=== PATIENT | female | born 2000 | race Caucasian/White ===

== ENCOUNTER → 2020-07-29 13:35 | Outpatient (CLI) | payer BC, SELFPAY ==
--- NOTE | ~2020-07-29 | US_ITS ---
EXAMINATION: US venous doppler LE RT DATE: 07/29/2020 14:10 INDICATION: Right lower limb pain TECHNIQUE: Grande scale images without and with compression and Doppler images of the right lower extre mity veins were obtained. COMPARISON: None FINDINGS: The right common femoral vein, profunda femoral vein, femoral vein, popliteal vein, peronea l trunk, posterior tibial veins, and greater saphenous vein are patent. IMPRESSION: 1. Patent right lower extremity veins. No evidence of deep venous thrombosis. Reviewed, dictated and finalized at location A.
== END ==
PROVIDERS: PCP Nurse Practitioner Family; Visit Provider Nurse Practitioner Family
DX: M79.604 Pain in right leg (principal)
CPT/HCPCS: 93971

== ENCOUNTER → 2021-02-08 13:33 | Outpatient (CLI) | payer BC, SELFPAY ==
--- NOTE | ~2021-02-08 | XR_ITS ---
EXAMINATION: XR sacrum coccyx min 2V DATE: 02/08/2021 14:04 INDICATION: Coccygeal pain TECHNIQUE: AP, angled AP and lateral views of the sacrum and coccyx were obtained. COMPARISON: CT abdomen and pelvis dated 06/10/19 FINDINGS: Transitional S1 segment which is lumbarized on the right. Sacral arches are intact. No fracture or ev ident cortical erosions. Mild bilateral sacroiliac osteoarthritis. Bilateral hip joint spaces are nor mal. IMPRESSION: 1. Mild bilateral sacroiliac osteoarthritis. No acute osseous abnormality. Reviewed, dictated and finalized at location A.
== END ==
PROVIDERS: PCP Nurse Practitioner Family; Visit Provider Nurse Practitioner Family
DX: M47.818 Spondylosis without myelopathy or radiculopathy, sacral and sacrococcygeal region (principal)
CPT/HCPCS: 72220

== ENCOUNTER 2023-06-20 01:30 | Day surgery (SDC) | payer BC, SELFPAY ==
[2023-06-13 14:29] VITALS: BMI 35.4
--- NOTE | 2023-06-13 14:33 | PC.NURSE ---
Report to the Outpatient Waiting Room, entrance under the green pavilion located off [facility], at time 0600 on date 06/20/23. Planned Procedure Time: 0730. Time changes happen often and if your time is changed the preop area will call you the afternoon before. - You and your visitor will be asked to self-screen and do not enter if you have any COVID symptoms. - A mask is optional within the hospital at this time. Patients may have clear liquids (water, carbonated beverages, clear teas, apple juice) until 3 hours prior to surgery (0430) with a maximum of 20 ounces. - No food from midnight until time of surgery Take the following medications with a SIP of water the morning of surgery: NONE DO NOT STOP ANY OF YOUR OTHER PRESCRIPTION MEDICATIONS PRIOR TO SURGERY ?EXCEPT THE FOLLOWING Medications to discontinue per physician: N/A Date to take last dose: N/A Please no make-up, nail maldivian, hairspray, perfume, deodorant, or body powder the day of surgery. No jewelry (including any body piercings) or valuables the day of surgery, leave them at home. Please take a shower or bath the night before, or the morning of, surgery with an antibacterial soap. Wear comfortable, loose fitting clothing. - Jewelry must be removed prior to entering the operating room. Rings and piercings that are not removed may be cut off. - The hospital will not accept responsibility for valuables. - Please leave all valuables, including medications, at home the day of surgery. If you are going home after surgery, a licensed operator and truck driver must drive you home. - NO public transportation without another adult if you receive anesthesia. - We recommend that an adult stay with you for 24 hours following discharge. - We also recommend that you do not drive, make important decision, drink alcoholic beverages, or take any drugs that were not prescribed by your health care provider for at least 24 hours after your discharge time. Follow any additional instructions given to you from your surgeon. If you or anyone in your household have experienced Covid symptoms in the past week, please notify your surgeon or the nurse liaison at the phone number below for possible testing. Telephone instructions given to PT - ROBBIE [facility]ITAL and asked if any additional questions and then verbalized understanding. Patient advised to call surgeon office or pre surgery nurse liaison [phone] if any additional questions.
[2023-06-20] VITALS (9 sets, daily range): BP systolic 95–118; BP diastolic 56–72; PULSE 71–102; RESP 16–18; TEMP 36.1–36.2; O2SAT 99–100
[2023-06-20] MEDS: ACETAMINOPHEN 500 MG TABLET 1000 MG PO (06:29)
[2023-06-20] MEDS: LACTATED RINGERS 1,000 ML 30 ML IV CONT ×2 (06:30→08:21)
[2023-06-20] MEDS: KETOROLAC 15 MG/ML VIAL (*BKC) IV PUSH (06:32)
--- NOTE | 2023-06-20 06:38 | WPDANESEPPF ---
Anes - Initial Pre Proc Eval Procedure: Operation Date: 06/20/23 07:30 Proposed Procedures p Laparoscopic Right Ovarian Cystectomy - Rick Stone MD Date/Time: 06/20/23 06:38 Surgeon: Rick Stone MD Pre Op Diagnosis: right ovary cyst Patient Data Age: 22 Gender: F Height: 1.75 m Weight: 108.9 kg Allergies Allergy/AdvReac Type Severity Reaction Status Date / Time No Known Allergies Allergy Unverified 06/13/23 14:28 Home Medications Medication Instructions Recorded Confirmed Type sumatriptan succinate 50 mg tablet 50 mg PO ONCE PRN Migraine Headache 06/13/23 06/20/23 History Patient hx anesthesia problems: none and other (motion sickness) Family hx anesthesia problems: none Results Review: All pre-operative results and documents have been reviewed as part of the pre-operative evaluation. [facility] Social History Social History Smoking status: Never smoker Alcohol intake: current Alcohol use details: 2/MONTH Substance use: never Substance use type: does not use Living arrangements: with friend(s) Additional living arrangements comments: BOYFRIEND Spiritual care concerns: No Anes - Eval Final PreProcedure Day of Procedure 06/20/23 06:38 Patient weight: obese Heart: regular rate and rhythm Lungs: clear to auscultation Airway: Mallampati scale class II Neurological: alert and oriented Last oral intake: >/= 8 hours ASA classification: II Emergent: no Anesthetic plan: proceed Anesthesia type and monitoring: general ETT and standard monitoring Results Review: All pre-operative results and documents have been reviewed as part of the pre-operative evaluation. Informed Consent: The patient's anesthetic plan and its attendant risks and benefits were discussed with the patient/family/POA. Questions were solicited and answers provided to the satisfaction of the patient/family/POA.
[2023-06-20] MEDS: SCOPOLAMINE 1.5 MG PATCH TRANSDERM (06:41)
--- NOTE | 2023-06-20 07:17 | WPDHPUPDATE1 ---
History and Physical Update Update Date/Time: 06/20/23 07:17 History and Physical has been reviewed, including an updated exam of the patient. There are NO changes in the patient's condition. Risks, benefits, and alternatives have been discussed and questions answered. Patient agrees to proceed with procedure.
[2023-06-20] MEDS: fentaNYL CITRATE INJ (*CRX) 100 MCG/2 ML VIAL 25 MCG IV PUSH ×2 (08:25→08:32)
--- NOTE | 2023-06-20 08:29 | W.PM.PROC2 ---
Procedure Note - Detailed Date of Procedure 06/20/23 Pre-op Diagnosis right ovary cyst Post-op Diagnosis Same Procedure Performed Laparoscopic right ovarian cystectomy Surgeon Rick Stone MD Anesthesia General Indications Pelvic pain Findings Normal-appearing pelvic anatomy with exception of the right ovarian cyst that is about 3.5 cm. Description of Procedure The patient was taken to the operating room. She was prepped and draped in the dorsal lithotomy position after induction general anesthesia. A 5 mm incision was made with a scalpel on the abdominal skin in the left upper quadrant of the abdomen. A 5 mm trocar was inserted into the intra-abdominal cavity under direct visualization the scope. In the same fashion a 5 mm left lower quadrant trocar was inserted and a 5 mm infraumbilical trocar was inserted. Right ovarian cystectomy was performed using cautery and blunt dissection. Cyst capsule was removed from the cut ovarian surface. The cut surface was cauterized. Pelvis was irrigated. Ovarian cut surface was hemostatic. The pelvis was irrigated. The pneumoperitoneum was reduced. The trocars were removed. Skin was closed with subcuticular 4 micro. The patient's incisions were covered with Dermabond. She was taken recovery room in stable condition. Sponge lap and needle counts were correct x2. Complications No immediate complications Condition Stable Disposition Same day
[2023-06-20] MEDS: ONDANSETRON INJ 4 MG/2 ML VIAL IV PUSH (09:46)
[2023-06-20] MEDS: oxyCODONE HCL (*CRX) 5 MG TAB IR PO (09:54)
== END 2023-06-20 10:30 | disposition home or self-care (01) ==
PROVIDERS: PCP Nurse Practitioner Family; Visit Provider Obstetrics & Gynecology
PROC: (CPT 49320; principal; 2023-06-20 07:30)
DX: N83.01 Follicular cyst of right ovary (principal); E66.9 Obesity, unspecified; Z68.33 Body mass index [BMI] 33.0-33.9, adult
CPT/HCPCS: 58662; 88305; A9270; J1100; J1170; J1885; J2250; J2405; J2704; J2710; J3010; J7030; J7120